=== PATIENT | male | born 1980 | race Two or more races ===

== ENCOUNTER 2020-03-08 15:50 | Emergency (ER) | payer BC ==
[~2020-03-08] VITALS: Ht 162.6 cm; Wt 76.2 kg
--- NOTE | 2020-03-08 16:30 | NUR ---
ED Nurse Note: pt states anxiety, hx of panic attacks but this was the worst. pt states he did not fall down, no stressors or inciting factors, per pt. pt A&Ox4, stable now. EKG in progress. pt states no hx/dx of anxiety or depression.
--- NOTE | 2020-03-08 17:20 | NUR ---
ER DISCHARGE NOTE: Patient is cleared to be discharged per ERMD, pt is aox4, on room air, with stable vital signs. pt was given dc instructions, pt was able to verbalize understanding, pt id band removed. pt is able to ambulate with steady gait. pt took all belongings.
--- NOTE | 2020-03-08 17:27 | Emergency Room Report ---
History of Present Illness General Chief Complaint: General Complaint Source: Patient Present Illness HPI 39-year-old male presents for evaluation. Complaining of shortness of breath. States that at work today he felt sudden onset of chest tightness which lasted for few minutes then resolved. States he was feeling very anxious at work. States he feels better now. Denies chest pain. Denies any difficulty breathing. Denies cough. States it happened 1 month earlier similar episode after a stressful day at work. No other aggravating relieving factors. Denies any other associated symptoms Allergies: Coded Allergies: No Known Allergies (Unverified , 03/08/20) COVID-19 Screening Contact w/high risk pt: No Experienced COVID-19 symptoms?: No COVID-19 Testing performed [employer]: No Patient History Past Medical History: none Past Surgical History: none Pertinent Family History: none Social History: Denies: smoking, alcohol use, drug use Immunizations: UTD Reviewed Nursing Documentation: PMH: Agreed; PSxH: Agreed Nursing Documentation-PMH Past Medical History: No Stated History Review of Systems All Other Systems: negative except mentioned in HPI Physical Exam Vital Signs Date Time Temp Pulse Resp B/P (MAP) Pulse Ox O2 Delivery O2 Flow Rate FiO2 03/08/20 16:00 98.8 81 17 146/95 (112) 98 Room Air Sp02 EP Interpretation: reviewed, normal General Appearance: no apparent distress, alert, GCS 15, non-toxic Head: normocephalic, atraumatic Eyes: bilateral eye normal inspection, bilateral eye PERRL ENT: hearing grossly normal, normal pharynx, no angioedema, normal voice Neck: full range of motion, supple/symm/no masses Respiratory: chest non-tender, lungs clear, normal breath sounds, speaking full sentences Cardiovascular #1: regular rate, rhythm, no edema Cardiovascular #2: 2+ carotid (R), 2+ carotid (L), 2+ radial (R), 2+ radial (L), 2+ dorsalis pedis (R), 2+ dorsalis pedis (L) Gastrointestinal: normal bowel sounds, non tender, soft, non-distended, no guarding, no rebound Rectal: deferred Genitourinary: normal inspection, no CVA tenderness Musculoskeletal: back normal, normal range of motion, gait/station normal, non- tender Neurologic: alert, motor strength/tone normal, oriented x3, sensory intact, responsive, speech normal Psychiatric: judgement/insight normal, memory normal, mood/affect normal, no suicidal/homicidal ideation Reflexes: 3+ bicep (R), 3+ bicep (L), 3+ tricep (R), 3+ tricep (L), 3+ knee (R), 3+ knee (L) Lymphatic: no adenopathy Medical Decision Making Diagnostic Impression: Primary Impression: Dyspnea Qualified Codes: R06.00 - Dyspnea, unspecified ER Course Hospital Course 39-year-old male presents with episode of chest tightness Differential diagnoses include: [place]/unstable angina, dehydration, anxiety Clinical course Patient placed on stretcher. on cardiac catheterization technician. After initial history and physical I ordered EKG EKGnormal sinus rhythm no acute ischemic changes interpreted by me I discussed findings with patient. No cardiac risk factors. Vitals stable. The symptoms are episodic and seem to correlate with episodes of stress. Patient does acknowledge there may be a component of anxiety triggering his symptoms. Safe for discharge with close outpatient follow-up. I. I feel this is a highly complex case requiring extensive working including EKG/Rhythm strip, Xray/CT/US, Blood/urine lab work, repeat exams while in ED, and administration of strong opiates/narcotics for pain control, admission to hospital or close patient follow up. Diagnosis - anxiety Stable and discharged to home. Followup with PMD. Return to ED if symptoms recur or worse EKG Diagnostic Results Troponin ordered: No - normal EKG. no cardiac risk factors. Rate: normal Rhythm: NSR ST Segments: no acute changes ASA given to the pt in ED: No Rhythm Strip Diag. Results EP Interpretation: yes Rhythm: NSR, no PVC's, no ectopy Last Vital Signs Date Time Temp Pulse Resp B/P (MAP) Pulse Ox O2 Delivery O2 Flow Rate FiO2 03/08/20 16:32 82 20 Room Air 03/08/20 16:00 98.8 146/95 (112) 98 Status: improved Disposition: HOME, SELF-CARE Condition: Stable Patient Instructions: Panic Attacks, [id number] Simon Chen MD Mar 08, 2020 17:27
[2020-03-08 17:41] VITALS: BP 136/76
--- NOTE | 2020-03-10 02:24 | Cardiology Report ---
APPROVED REPORT EKG Measurement Heart [id number] <Conclusion> Normal sinus rhythm Normal ECG
== END 2020-03-08 17:35 | disposition home or self-care (01) ==
LOC: EMR 16:15
DX: R06.00 Dyspnea, unspecified (principal); R07.89 Other chest pain
CPT/HCPCS: 93005; 99282